=== PATIENT | female | born 1960 | race Caucasian/White ===

== ENCOUNTER 2018-10-18 07:36 | Outpatient (CLI) | payer OTHER ==
[~2018-10-18 07:36] MED LIST: CEFADROXIL500 MG PO; PERCOCET 5/3251 TAB PO
== END 2018-10-18 08:25 | disposition home or self-care (01) ==
LOC: TOM 07:36
DX: C50.012 Malignant neoplasm of nipple and areola, left female breast (principal); K40.90 Unilateral inguinal hernia, without obstruction or gangrene, not specified as recurrent

== ENCOUNTER 2021-08-05 08:00 | Outpatient (CLI) | payer OTHER | END 2021-08-05 08:30 | disposition home or self-care (01) | LOC: PPH VACUNA 08:00 | PROVIDERS: ATTEND Emergency Medicine Pediatric Emergency Medicine | DX: Z23 Encounter for immunization (principal) ==

== ENCOUNTER 2021-12-27 12:17 | Outpatient (CLI) | payer OTHER | END 2021-12-27 15:34 | disposition home or self-care (01) | LOC: MRI 12:17 | PROVIDERS: ATTEND Radiology Diagnostic Radiology | DX: M65.879 Other synovitis and tenosynovitis, unspecified ankle and foot (principal) | CPT/HCPCS: 73721 ==

== ENCOUNTER 2023-04-17 06:31 | Outpatient (CLI) | payer OTHER | END 2023-04-17 15:21 | disposition home or self-care (01) | LOC: MRI 06:31 | PROVIDERS: ATTEND Orthopaedic Surgery Sports Medicine | DX: M67.461 Ganglion, right knee (principal) | CPT/HCPCS: 73721 ==

== ENCOUNTER 2023-12-28 07:04 | Outpatient (CLI) | payer OTHER | END 2023-12-28 07:30 | disposition home or self-care (01) | LOC: TOM 07:04 | PROVIDERS: ATTEND Otolaryngology | DX: J32.4 Chronic pansinusitis (principal) ==